=== PATIENT | female | born 1995 | race African-American/Black ===

== ENCOUNTER 2017-02-27 10:23 | Emergency (ER) | payer SELFPAY ==
[2017-02-27 10:24] VITALS: BP 148/94; PULSE 77; RESP 13; TEMP 97.2; O2SAT 99
--- NOTE | 2017-02-27 11:08 | PD ---
HPI Chief Complaint: Pain: Acute or Chronic Time Seen by Provider: 10:35 Travel History International Travel<30 days: No Contact w/Intl Traveler<30days: No Traveled to known affect area: No History of Present Illness HPI Patient comes in complaining of chronic right knee pain ongoing for years. Describes pain as achy like in nature over the anterior aspect of her right knee. Patient states that she has scar tissue in her meniscus from small tear that was not repaired when she was younger. Patient states she never sought orthopedic for this problem and was managed by her primary care physician. Patient states she used to do physical therapy as well as have annual x-rays but hasn't had a couple of years as she quit playing sports. Patient denies any recent trauma, numbness or tingling, radiation of the pain, , or new symptoms. Patient denies anything making it better. Pain is worse with walking. History Social History Alcohol Use: No Tobacco Use: No Allergies-Medications (Allergen,Severity, Reaction): Coded Allergies: aspirin (Verified Allergy, Unknown, FACIAL SWELLING, 02/27/17) citric acid (Verified Allergy, Unknown, FACIAL SWELLING, 02/27/17) sodium bicarbonate (Verified Allergy, Unknown, FACIAL SWELLING, 02/27/17) Reported Meds & Prescriptions Reported Meds & Active Scripts Active No Active Prescriptions or Reported Medications Review of Systems Except as stated in HPI: all other systems reviewed are Neg Physical Exam Narrative GENERAL: Well-developed, well nourished, in no acute distress, and non-ill appearing. SKIN: Focused skin assessment warm and dry. HEAD: Atraumatic. Normocephalic. EYES: Pupils equal and round. EOMI. No scleral icterus. No injection or drainage. ENT: No nasal bleeding or discharge. Mucous membranes pink and moist. NECK: Trachea midline. Supple. No nuclear rigidity. CARDIOVASCULAR: Dorsal pulses 2+, intact, and equal bilaterally. Capillary refill less than 2 seconds. RESPIRATORY: No accessory muscle use. No respiratory distress. MUSCULOSKELETAL: No obvious deformities. No clubbing. No cyanosis. No edema. Full range of motion. Knee: Negative patellar apprehension, varus and valgus maneuvers, anterior draw test, and Jory test. Pulses equal BL distal to injury. Capillary refill less than 2 seconds distal to injury and equal BL. FROM distal to injury and equal BL. Strength distal to injury equal BL. NV intact distal to injury. Dorsal pulses equal BL. Sensation equal BL 1st web space. NEUROLOGICAL: Awake and alert. No obvious cranial nerve deficits. Motor grossly within normal limits. Normal speech. PSYCHIATRIC: Appropriate mood and affect; insight and judgment normal. Data Data Last Documented VS Vital Signs Date Time Temp Pulse Resp B/P (MAP) Pulse Ox O2 Delivery O2 Flow Rate FiO2 02/27/17 10:24 97.2 77 13 148/94 (112) 99 MDM Medical Screen Exam Complete: Yes Emergency Medical Condition: No Narrative Course History and physical exam findings are not consistent with an emergent medical condition. She was given the option of receiving additional care, but has declined. Therefore the appropriate counseling recommendations were discussed with the patient and she was instructed to follow-up with her primary care physician as soon as possible for reevaluation. Patient was also informed of community resources from which she can obtain additional care. She is agreeable and verbalizes an understanding of the proposed plan. The patient states she will immediately return to the emergency department if her current complaints do not improve, new symptoms arise, or emergent condition develops. Patient ambulated out of the emergency department without difficulty. Primary Impression: Encounter for medical screening examination Scripts No Active Prescriptions or Reported Meds Disposition: [facility]GO-ED USE ONLY Condition: Stable Leonid Marquez Feb 27, 2017 11:08
== END 2017-02-27 11:04 | disposition left against medical advice (07) ==
LOC: NEPK 10:23
DX: M25.561 Pain in right knee (principal)
CPT/HCPCS: 99281

== ENCOUNTER 2017-06-02 05:43 | Emergency (ER) | payer BC ==
[~2017-06-02] VITALS: Ht 149.9 cm; Wt 61.5 kg
[2017-06-02 05:44] VITALS: BP 131/87; PULSE 63; RESP 16; TEMP 98.5; O2SAT 99
--- NOTE | 2017-06-02 06:23 | PD ---
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 She's had 3-4 sexual partners in the past 6 months. She recently had intercourse without protection. PFSH Past Medical History Asthma: Yes Diminished Hearing: No Tetanus Vaccination: < 5 Years Influenza Vaccination: No ?: Not LMP: UNSURE : 1 Para: 0 Miscarriage: 0 : 1 Past Surgical History Surgical History: No Previous Surgery Social History Alcohol Use: No Tobacco Use: No Substance Use: Yes (MARIJUANA) Allergies-Medications (Allergen,Severity, Reaction): Coded Allergies: aspirin (Verified Allergy, Unknown, FACIAL SWELLING, 06/02/17) citric acid (Verified Allergy, Unknown, FACIAL SWELLING, 06/02/17) sodium bicarbonate (Verified Allergy, Unknown, FACIAL SWELLING, 06/02/17) Reported Meds & Prescriptions Reported Meds & Active Scripts Active No Active Prescriptions or Reported Medications Review of Systems Except as stated in HPI: all other systems reviewed are Neg Physical Exam Narrative GENERAL: Well-appearing, no acute distress, nontoxic SKIN: Warm and dry. HEAD: Atraumatic. Normocephalic. ENT: No nasal bleeding or discharge. 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 No clubbing. No cyanosis. No edema. NEUROLOGICAL: Awake and alert. No obvious cranial nerve deficits. Motor grossly within normal limits. Normal speech. PSYCHIATRIC: Appropriate mood and affect; insight and judgment normal. Data Data Last Documented VS Vital Signs Date Time Temp Pulse Resp B/P (MAP) Pulse Ox O2 Delivery O2 Flow Rate FiO2 06/02/17 05:44 98.5 63 16 131/87 (102) 99 Room Air Orders Orders Gc And Chlamydia Pcr (06/02/17 06:10) Wet Prep Profile (06/02/17 06:10) Azithromycin Powd Pack (Zithromax Powd P (06/02/17 06:30) Ceftriaxone Inj (Rocephin Inj) (06/02/17 06:30) Lidocaine 1% Inj (50 Ml) (Xylocaine 1% I (06/02/17 06:30) Metronidazole (Flagyl) (06/02/17 07:00) Labs Laboratory Tests Test 06/02/17 06:10 Clue Cells (Wet Prep) NONE SEEN Vaginal Trichomonas (Wet Prep) PRESENT Vaginal Yeast (Wet Prep) NONE SEEN MDM Medical Decision Making Medical Screen Exam Complete: Yes Emergency Medical Condition: Yes Differential Diagnosis Gonorrhea, chlamydia, Trichomonas, PID Narrative Course This is a 21-year-old female who presents to the emergency department with vaginal itching following unprotected sex. She has copious discharge in the vault. She has no signs of PID. Patient will be empirically treated for acute cervicitis. Diagnosis Primary Impression: Acute cervicitis Additional Impression: Trichomonas vaginitis Patient Instructions: General Instructions Additional Instructions: If you develop fever, chills, severe abdominal pain, persistent vomiting or inability to eat return to the emergency department. Your pelvic exam today did not include a Pap smear. It is important to followup with a wharf tender head on a yearly basis to be tested for cervical cancer as we do not do that from the emergency department. If there is a concern that you have sexually transmitted disease, your partner should be tested. You should followup with your wharf tender head or with the health department to get tested for other sexually transmitted diseases like HIV and syphilis, as we do not test for these in the emergency department Med/Other Pt SpecificInfo: No Change to Meds Scripts No Active Prescriptions or Reported Meds Disposition: 01 DISCHARGE HOME Condition: Stable Ban Elizabeth MD Jun 02, 2017 06:23
[2017-06-02] MEDS ORDERED: LIDOCAINE HCL 1% 50 ML VIAL IM ONE (06:30)
[2017-06-02] MEDS ORDERED: cefTRIAXone 250 MG VIAL IM ONE (06:30)
[2017-06-02] MEDS ORDERED: AZITHROMYCIN PWD FOR SUSP 1 GM PACKET PO ONE (06:30)
[2017-06-02] MEDS ORDERED: metroNIDAZOLE 500 MG TAB PO ONE (07:00)
== END 2017-06-02 08:20 | disposition home or self-care (01) ==
LOC: NEPE 05:43
DX: N72 Inflammatory disease of cervix uteri (principal); A59.01 Trichomonal vulvovaginitis
CPT/HCPCS: 87210; 87491; 87591; 96372; 99284; J0696